=== PATIENT | male | born 1975 | race Caucasian/White ===

== ENCOUNTER 2017-03-18 20:44 | Emergency (ER) | payer OTHER ==
[~2017-03-18] VITALS: Ht 188 cm; Wt 88.6 kg
[2017-03-18 20:47] VITALS: BP 137/79
[2017-03-18] MEDS ORDERED: ACET1TAB17 PO (20:57)
[2017-03-18] MEDS ORDERED: SUMA25TA3 PO (20:57)
[2017-03-18] MEDS ORDERED: ACETAMINOPHEN 325 MG TAB PO ONE (21:00)
--- NOTE | 2017-03-18 21:20 | REPUSA ---
CT of the head Clinical history: trauma. Technique: Multiple axial CT images were obtained through the head without administration of contrast . Findings: The ventricles and sulci are symmetric bilaterally. There is no evidence of acute hemorrhag e or infarct. There is no midline shift, mass effect, or extra-axial fluid collection. The osseous st ructures are unremarkable. The visualized paranasal sinuses and mastoid air cells are clear. Impression: Negative study.
--- NOTE | 2017-03-19 08:02 | REP ---
Left ribs and PA chest: Left ribs five views: There is no rib fracture or other rib abnormality. PA chest: There are no comparisons. There is no pneumothorax, hemothorax or pulmonary contusion. Lung casper are clear. Cardiac size is normal. The marce, mediastinum, bony thorax are unremarkable. Impression: Negative PA chest. Signed by Alberto Holcomb MD 03/19/2017 07:54 A
== END 2017-03-18 21:58 | disposition home or self-care (01) ==
LOC: M ED 20:44 → EDBD 20:44 → M ED 21:58
DX: S20.219A Contusion of unspecified front wall of thorax, initial encounter (principal); V43.52XA Car driver injured in collision with other type car in traffic accident, initial encounter; Y92.39 Other specified sports and athletic area as the place of occurrence of the external cause; Y93.89 Activity, other specified; Y99.9 Unspecified external cause status